=== PATIENT | female | born 1975 | race Caucasian/White ===

== ENCOUNTER 2016-08-03 10:06 | Emergency (ER) | payer BC ==
[~2016-08-03] VITALS: Ht 167.6 cm; Wt 99.8 kg
[2016-08-03] MEDS ORDERED: MINOCYCLINE HC100 MG PO (10:28)
[2016-08-03] MEDS ORDERED: XANAX0.5 MG PO (10:29)
[2016-08-03] MEDS ORDERED: PROZAC20 MG PO (10:29)
[2016-08-03] MEDS ORDERED: FERROUS SULFAT325 M1 PO (10:30)
== END 2016-08-03 11:08 | disposition short-term general hospital (02) ==
LOC: ER 10:06
DX: S63.501A Unspecified sprain of right wrist, initial encounter (principal); F41.9 Anxiety disorder, unspecified; F32.9 Major depressive disorder, single episode, unspecified; Z79.899 Other long term (current) drug therapy; W01.0XXA Fall on same level from slipping, tripping and stumbling without subsequent striking against object, initial encounter